=== PATIENT | male | born 1975 ===

== ENCOUNTER 2018-03-28 22:38 | Emergency (ER) | payer SELFPAY ==
[~2018-03-28] VITALS: Ht 167.6 cm; Wt 95.3 kg
[2018-03-28] MEDS ORDERED: LIDOCAINE/EPI 2% 1:100,00 (XYLOCAINE) 20 ML VIAL INJ ONE (23:00)
[2018-03-28] MEDS ORDERED: LIDOCAINE 1% INJ 20 ML 20 ML VIAL INJ ONE (23:45)
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
[2018-03-29] MEDS ORDERED: TRAM-42 PO (00:41)
[2018-03-29 00:45] VITALS: BP 132/119
--- NOTE | 2018-03-29 08:24 | Diagnostic Imaging Report ---
INDICATION: Fracture, postreduction TECHNIQUE: 2 views of the left little finger 12:12 AM CORRELATION STUDY: 03/28/2018 FINDINGS: A comminuted but predominantly transversely oriented fracture of the proximal shaft of the proximal phalanx little finger again demonstrated. Alignment appearing near-anatomic on post reduction views. The soft tissues are unremarkable. IMPRESSION: 1. Comminuted, predominantly transversely oriented fracture of the proximal phalanx of the little finger near anatomic alignment. Associated soft tissue swelling. Dictated by: Dictated on workstation # [id number]
--- NOTE | 2018-03-29 08:27 | Diagnostic Imaging Report ---
Left hand 1136 hours. INDICATION: Hand pain. 3 views were obtained. FINDINGS: There is slightly comminuted volarly angulated fracture of the base of proximal phalanx of the fifth digit. No other fracture or acute bony abnormality is noted. The soft tissues are unremarkable. IMPRESSION: There is slightly comminuted volarly angulated fracture of the base of proximal phalanx of the fifth digit. No other acute bony abnormality is noted. Dictated by: Dictated on workstation # [id number]
== END 2018-03-29 00:48 | disposition home or self-care (01) ==
LOC: EDUNIT# 22:38 → ER 22:40
DX: S01.01XA Laceration without foreign body of scalp, initial encounter (principal); S62.617A Displaced fracture of proximal phalanx of left little finger, initial encounter for closed fracture; I10 Essential (primary) hypertension; F17.200 Nicotine dependence, unspecified, uncomplicated; Y00.XXXA Assault by blunt object, initial encounter; Y92.009 Unspecified place in unspecified non-institutional (private) residence as the place of occurrence of the external cause
CPT/HCPCS: 29130; 73130; 73140

== ENCOUNTER 2019-09-03 10:22 | Emergency (ER) | payer SELFPAY ==
[~2019-09-03] VITALS: Ht 165 cm; Wt 90.7 kg
[~2019-09-03 10:22] MED LIST: TRAM-42 PO
[2019-09-03] MEDS ORDERED: ONDANSETRON 4 MG/2 ML (SDV) Z0FRAN IVP ONE (10:30)
[2019-09-03] MEDS ORDERED: LACTATED RINGERS 1,000 ML IV ONE (10:30)
[2019-09-03] MEDS ORDERED: KETOROLAC 30 MG/ML VIAL IVP ONE (10:45)
[2019-09-03 10:53] LABS: BASOPHILS % (AUTO) 0 % (0-10); EOSINOPHILS # (AUTO) 0.2 10^3/uL (0.0-0.3); EOSINOPHILS % (AUTO) 2 % (0-10); HEMATOCRIT 39 % (40-54); HEMOGLOBIN 12.8 G/DL (13.3-17.7); LYMPHOCYTES # (AUTO) 1.8 X 10^3 (1.0-4.0); LYMPHOCYTES % (AUTO) 15 % (12-44); MEAN CORPUSCULAR HEMOGLOBIN 25 PG (25-34); MEAN CORPUSCULAR HGB CONC 33 G/DL (32-36); MEAN CORPUSCULAR VOLUME 75 FL (80-99); MEAN PLATELET VOLUME 9.9 FL (7.4-10.4); MONOCYTES # (AUTO) 1.3 X 10^3 (0.0-1.0); MONOCYTES % (AUTO) 10 % (0-12); NEUTROPHILS % (AUTO) 73 % (42-75); PLATELET COUNT 249 10^3/uL (130-400); RED CELL DISTRIBUTION WIDTH 16.1 % (10.0-14.5); WHITE BLOOD COUNT 12.3 10^3/uL (4.3-11.0)
[2019-09-03 11:18] LABS: ALANINE AMINOTRANSFERASE 9 U/L (0-55); ALBUMIN 4.1 GM/DL (3.2-4.5); ALKALINE PHOSPHATASE 88 U/L (40-136); AMYLASE 118 U/L (25-125); BILIRUBIN,TOTAL 0.2 MG/DL (0.1-1.0); BUN/CREATININE RATIO 17; CARBON DIOXIDE 22 MMOL/L (21-32); CHLORIDE 110 MMOL/L (98-107); CREATININE SERUM 0.98 MG/DL (0.60-1.30); GFR ESTIMATED > 60; GLUCOSE 110 MG/DL (70-105); LIPASE 163 U/L (8-78); MAGNESIUM 1.9 MG/DL (1.6-2.4); POTASSIUM 3.7 MMOL/L (3.6-5.0); SODIUM 142 MMOL/L (135-145); TOTAL PROTEIN 7.3 GM/DL (6.4-8.2)
--- NOTE | 2019-09-03 11:21 | Diagnostic Imaging Report ---
PROCEDURE: CT urinary tract, rule out kidney stone. TECHNIQUE: Multiple contiguous axial images were obtained through the abdomen and pelvis without the use of intravenous contrast. Auto Exposure Controls were utilized during the CT exam to meet ALARA standards for radiation dose reduction. INDICATION: Left flank pain Lung bases are clear. Liver appears normal. Gallbladder surgically absent. Pancreas is normal. Spleen is not enlarged. Kidneys and adrenals appear normal. Ureters are clear. The appendix is normal. Small bowel is not dilated. Colon appears normal. There are some prostate calcification. Urinary bladder is nondistended. IMPRESSION: There are multiple small lymph nodes scattered throughout the mesentery but none that appear pathologically enlarged. Recommend follow-up CT in 3 to 6 months to reevaluate for possibility of lymphoma. Dictated by: Dictated on workstation # [id number]
--- NOTE | 2019-09-03 11:26 | Diagnostic Imaging Report ---
INDICATION: Left flank pain. EXAMINATION: PA chest, supine and upright abdominal images are obtained. FINDINGS: Lung bases are clear. There is no intraperitoneal free air. Bowel gas pattern is normal. There are no pathologic masses or calcifications. The gallbladder appears to be surgically absent. There is a surgical staple in the pelvis. IMPRESSION: No acute abnormalities in the abdomen. Dictated by: Dictated on workstation # [id number]
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
[2019-09-03] MEDS ORDERED: MELO15TA14 PO (11:37)
[2019-09-03] MEDS ORDERED: CYCL10TA9 PO (11:37)
[2019-09-03 11:39] LABS: BILIRUBIN,URINE NEGATIVE (NEGATIVE); CLARITY,URINE CLEAR; COLOR,URINE YELLOW; GLUCOSE, URINE (UA) NEGATIVE (NEGATIVE); KETONES,URINE NEGATIVE (NEGATIVE); LEUKOCYTE ESTERASE ,URINE NEGATIVE (NEGATIVE); NITRITE,URINE NEGATIVE (NEGATIVE); PROTEIN,URINE TRACE (NEGATIVE)
[2019-09-03 11:58] LABS: BACTERIA,URINE TRACE /HPF; SQUAMOUS EPITHELIAL CELL,UR RARE /HPF; WBC,URINE 0-2 /HPF
[2019-09-03 12:05] LABS: AMPHETAMINE SCREEN, URINE NEGATIVE (NEGATIVE); BARBITURATE SCREEN URINE NEGATIVE (NEGATIVE); BENZODIAZEPINES SCREEN URINE POSITIVE (NEGATIVE); CANNABINOID SCREEN, URINE POSITIVE (NEGATIVE); COCAINE SCREEN URINE NEGATIVE (NEGATIVE); METHADONE STAT NEGATIVE (NEGATIVE); METHAMPHETAMINE SCREEN URINE S NEGATIVE (NEGATIVE); OPIATE SCREEN URINE NEGATIVE (NEGATIVE); OXYCODONE STAT NEGATIVE (NEGATIVE); PROPOXYPHENE STAT NEGATIVE (NEGATIVE); TRICYCLIC ANTIDEPRESSANTS SCRE NEGATIVE (NEGATIVE)
[2019-09-03 12:19] VITALS: BP 147/86
== END 2019-09-03 12:20 | disposition home or self-care (01) ==
LOC: EDUNIT# 10:22 → ER 10:24
DX: I88.0 Nonspecific mesenteric lymphadenitis (principal); I10 Essential (primary) hypertension; F17.210 Nicotine dependence, cigarettes, uncomplicated; F17.220 Nicotine dependence, chewing tobacco, uncomplicated; Z87.442 Personal history of urinary calculi
CPT/HCPCS: 36415; 74022; 74176; 80053; 80306; 80320; 81000; 82150; 83690; 83735; 85025; 96374; 96375

== ENCOUNTER 2021-02-25 03:11 | Emergency (ER) | payer SELFPAY ==
[~2021-02-25] VITALS: Ht 162.6 cm; Wt 81.7 kg
[~2021-02-25 03:11] MED LIST changes: +CYCL10TA9 PO; +MELO15TA14 PO
[2021-02-25] MEDS ORDERED: KETOROLAC 30 MG/ML VIAL IVP STA (03:36)
[2021-02-25] MEDS ORDERED: ONDANSETRON 4 MG/2 ML (SDV) Z0FRAN IVP ONE (03:45)
[2021-02-25] MEDS ORDERED: LACTATED RINGERS 1,000 ML IV ONE (03:45)
[2021-02-25 03:47] LABS: BILIRUBIN,URINE NEGATIVE (NEGATIVE); CLARITY,URINE CLEAR; COLOR,URINE YELLOW; GLUCOSE, URINE (UA) NEGATIVE (NEGATIVE); KETONES,URINE NEGATIVE (NEGATIVE); LEUKOCYTE ESTERASE ,URINE NEGATIVE (NEGATIVE); NITRITE,URINE NEGATIVE (NEGATIVE); PROTEIN,URINE NEGATIVE (NEGATIVE)
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
[2021-02-25 03:58] LABS: BASOPHILS # (AUTO) 0.1 10^3/uL (0.0-0.1); BASOPHILS % (AUTO) 1 % (0-10); EOSINOPHILS # (AUTO) 0.2 10^3/uL (0.0-0.3); EOSINOPHILS % (AUTO) 2 % (0-10); HEMATOCRIT 40 % (40-54); HEMOGLOBIN 12.4 g/dL (13.3-17.7); LYMPHOCYTES # (AUTO) 2.3 10^3/uL (1.0-4.0); LYMPHOCYTES % (AUTO) 21 % (12-44); MEAN CORPUSCULAR HEMOGLOBIN 24 pg (25-34); MEAN CORPUSCULAR HGB CONC 31 g/dL (32-36); MEAN CORPUSCULAR VOLUME 78 fL (80-99); MEAN PLATELET VOLUME 10.1 fL (9.0-12.2); MONOCYTES # (AUTO) 0.9 10^3/uL (0.0-1.0); MONOCYTES % (AUTO) 8 % (0-12); NEUTROPHILS # (AUTO) 7.3 10^3/uL (1.8-7.8); NEUTROPHILS % (AUTO) 68 % (42-75); PLATELET COUNT 312 10^3/uL (130-400); WHITE BLOOD COUNT 10.8 10^3/uL (4.3-11.0)
[2021-02-25 03:59] LABS: AMPHETAMINE SCREEN, URINE NEGATIVE (NEGATIVE); BARBITURATE SCREEN URINE NEGATIVE (NEGATIVE); BENZODIAZEPINES SCREEN URINE NEGATIVE (NEGATIVE); CANNABINOID SCREEN, URINE POSITIVE (NEGATIVE); COCAINE SCREEN URINE NEGATIVE (NEGATIVE); METHADONE STAT NEGATIVE (NEGATIVE); METHAMPHETAMINE SCREEN URINE S POSITIVE (NEGATIVE); OPIATE SCREEN URINE NEGATIVE (NEGATIVE); OXYCODONE STAT NEGATIVE (NEGATIVE); PROPOXYPHENE STAT NEGATIVE (NEGATIVE); TRICYCLIC ANTIDEPRESSANTS SCRE NEGATIVE (NEGATIVE)
[2021-02-25 04:00] LABS: BACTERIA,URINE NEGATIVE /HPF; RBC,URINE RARE /HPF; SQUAMOUS EPITHELIAL CELL,UR 0-2 /HPF
[2021-02-25 04:09] LABS: ALBUMIN 3.8 GM/DL (3.2-4.5); POTASSIUM 3.6 MMOL/L (3.6-5.0)
[2021-02-25 04:10] LABS: CALCIUM 8.9 MG/DL (8.5-10.1)
[2021-02-25 04:12] LABS: TOTAL PROTEIN 7.1 GM/DL (6.4-8.2)
[2021-02-25 04:13] LABS: BILIRUBIN,TOTAL 0.1 MG/DL (0.1-1.0)
[2021-02-25 04:15] LABS: CREATININE SERUM 1.38 MG/DL (0.60-1.30)
[2021-02-25] MEDS ORDERED: hydrALAZINE (APESOLINE) 20 MG/ML VIAL IV ONE (04:45)
[2021-02-25] MEDS ORDERED: KETO10TA PO (05:52)
[2021-02-25] MEDS ORDERED: ONDA8TAB13 PO (05:52)
[2021-02-25] MEDS ORDERED: TMSL.4C PO (05:52)
[2021-02-25] MEDS ORDERED: HYDR-34 PO (05:52)
[2021-02-25 05:58] VITALS: BP 159/106
[2021-02-25] MEDS ORDERED: TAMSULOSIN 0.4 MG (FLOMAX) CAP PO SCH (06:00)
--- NOTE | 2021-02-25 06:01 | Diagnostic Imaging Report ---
EXAMINATION: CT abdomen and pelvis without contrast. TECHNIQUE: Multiple contiguous axial images were obtained through the abdomen and pelvis without the use of intravenous contrast. All CT scans use one or more of the following dose optimizing techniques: automated exposure control, MA and/or KvP adjustment based on patient size and exam type or iterative reconstruction. HISTORY: Flank pain, kidney stone suspected COMPARISON: 09/03/2019 FINDINGS: Lung bases: The lung bases are clear. Solid organs: There is diffuse hypoattenuation of the liver compatible with hepatic steatosis. The gallbladder is surgically absent. There is no biliary ductal dilation. Pancreas is normal. Spleen is normal. Adrenal glands are normal. There is a 0.6 cm calculus in the proximal left ureter causing mild left hydronephrosis. There are additional bilateral nonobstructing renal calculi measuring up to 0.8 cm. Bowel: The stomach and small bowel are normal without obstruction. The colon and appendix are normal. Peritoneum: There is no intraperitoneal free fluid or free air. No suspicious lymphadenopathy. Vasculature: Normal without aneurysm. Musculoskeletal: Degenerative changes of the spine without suspicious osseous lesion or compression fracture. There is a 4.0 x 5.9 cm fluid collection along the left anterior pelvic soft tissues (series 2 image 107). Pelvis: The prostate gland is normal. The urinary bladder is normal. IMPRESSION: 1. A 0.6 cm calculus in the proximal left ureter causing mild left hydronephrosis. 2. Additional nonobstructing renal calculi measuring up to 0.8 cm. 3. A 4.0 x 5.9 cm fluid collection within the left anterior pelvic soft tissues. Dictated by: Dictated on workstation # [id number]
--- NOTE | 2021-02-25 06:01 | Diagnostic Imaging Report ---
EXAMINATION: Abdomen 1 view HISTORY: abdomen pain COMPARISON: 09/03/2019 FINDINGS: There is a moderate amount of gas and stool throughout the colon. Nonobstructive bowel gas pattern. No radiopaque foreign body. The lung bases are clear. The osseous structures are intact. IMPRESSION: Moderate stool burden without other acute abnormality in the abdomen. Dictated by: Dictated on workstation # [id number]
== END 2021-02-25 06:01 | disposition home or self-care (01) ==
LOC: EDUNIT# 03:11 → ER 03:14
DX: S30.1XXA Contusion of abdominal wall, initial encounter (principal); N13.2 Hydronephrosis with renal and ureteral calculous obstruction; I10 Essential (primary) hypertension; F19.90 Other psychoactive substance use, unspecified, uncomplicated; F17.210 Nicotine dependence, cigarettes, uncomplicated; X58.XXXA Exposure to other specified factors, initial encounter
CPT/HCPCS: 74018; 74176; 80053; 80306; 81000; 82150; 83690; 85025; 99284; G0480; 36415; 80320

== ENCOUNTER 2021-07-07 11:51 | Emergency (ER) | payer SELFPAY ==
[~2021-07-07 11:51] MED LIST changes: +CYCL10TA25 PO; -CYCL10TA9 PO; +HYDR-34 PO; +KETO10TA PO; +ONDA8TAB13 PO; +TMSL.4C PO
== END 2021-07-07 12:19 | disposition left against medical advice (07) ==
LOC: EDUNIT# 11:51 → ER 11:53
DX: R06.02 Shortness of breath (principal); R10.9 Unspecified abdominal pain
CPT/HCPCS: 99281